=== PATIENT | male | born 1965 | race Caucasian/White ===

== ENCOUNTER 2020-12-10 17:48 | Inpatient (IN) | payer OTHER ==
[~2020-12-10] VITALS: Ht 180.3 cm; Wt 115.2 kg
[2020-12-10 18:13] VITALS: BP 141/89
[2020-12-10 19:27] LABS: ABSOLUTE BASOPHILS 0.1 thou/uL (0.0-0.2); ABSOLUTE EOSINOPHILS 0.1 thou/uL (0.0-0.7); ABSOLUTE LYMPHOCYTES 0.9 thou/uL (0.8-5.3); ABSOLUTE NEUTROPHILS 10.2 thou/uL (1.6-8.1); BASOPHILS 1.1 %; EOSINOPHILS 0.6 %; HEMATOCRIT 44.4 % (42.0-52.0); HEMOGLOBIN 14.9 gm/dL (14.0-18.0); LYMPHOCYTES 7.6 %; MCH 31.5 pg (26.0-34.0); MCHC 33.5 g/dL (28.0-37.0); MCV 93.9 fL (80.0-100.0); MONOCYTES 8.1 %; MPV 9.5 fl. (7.2-11.1); NUCLEATED RBCS 0 /100WBC; PLATELET COUNT* 154 thou/uL (150-400); POLYS 82.6 %; RBC 4.73 mil/uL (4.50-6.00); RDW-CV 12.5 % (10.5-14.5); WBC 12.4 thou/uL (4.0-11.0)
[2020-12-10 19:52] LABS: CALCIUM 8.6 mg/dL (8.5-10.1); CREATININE 0.9 mg/dL (0.6-1.3); POTASSIUM 3.9 mmol/L (3.5-5.1)
[2020-12-10 20:03] LABS: ALBUMIN 3.5 g/dL (3.4-5.0); TOTAL BILIRUBIN 0.5 mg/dL (<0.1-1.0)
[2020-12-11 02:25] VITALS: BP 120/80
[2020-12-11 02:45] VITALS: BP 137/79
--- NOTE | 2020-12-11 02:45 | NUR ---
RECEIVED REPORT FROM ER, TO ROOM PER BED. O2 ON AT 2L/NC, HOB ELEVATED. UNABLE TO TAKE DEEP BREATHS DUE TO PAIN. DISCUSSED WILL HAVE THE PAIN UNTIL CLOTS HAVE STARTED RESOLVING. TELEMETRY APPLIED SHOWING SR. SEE ADMISSION ASSESSEMENT AND HX. WILL CONT TO MONITOR AND ASSIST NEEDED.
[2020-12-11 08:00] VITALS: BP 123/87
[2020-12-11 11:55] VITALS: BP 127/88
--- NOTE | 2020-12-11 12:28 | EKG ---
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
[2020-12-11 16:00] VITALS: BP 146/83
[2020-12-11 17:14] LABS: AMP/METHAMP Negative (Negative); BARBITURATES Negative (Negative); BENZODIAZEPINES Negative (Negative); COCAINE Negative (Negative); METHADONE Negative (Negative); OPIATES POSITIVE (Negative); PCP Negative (Negative); THC Negative (Negative)
--- NOTE | 2020-12-11 18:26 | NUR ---
PT COMPLAINED OF PAIN THIS AM-TREATED WITH PRN TORADOL WITH PARTIAL RELIEF. DAUGHTER AT BEDSIDE THROUGHOUT SHIFT. ON 2L NC SAT MID 90'S. SHORTNESS OF BREATH WITH EXERTION NOTED. UP AD MARIELA IN ROOM. TRACING SR ON THE GOLF BALL COVER TREATER. AM ASSESSMENT CHARTED. MEDS PER JUN. CALL LIGHT WITHIN REACH. WILL CONTINUE PLAN OF CARE.
[2020-12-11 20:00] VITALS: BP 159/88
--- NOTE | 2020-12-11 20:00 | NUR ---
RECEIVED REPORT AND ASSUMED CARE OF PT, ASSESSMENT COMPLETED. PT ANXIOUS AND OBNOXIOUS AT TIMES. INDEPENDENT AMBULATION AROUND ROOM. DENIES SOA OR RT CHEST PAIN. TELEMETRY ON SHOWING SR. WILL CONT TO MONITOR AND ASSIST NEEDED.
[2020-12-12 00:40] VITALS: BP 150/82
[2020-12-12 04:00] VITALS: BP 155/70
--- NOTE | 2020-12-12 06:17 | NUR ---
SLEPT WELL TONIGHT. NO COMPLAINTS OF SOA OR RT CHEST PAIN. NO CHANGE IN ASSESSMENT. HS GOALS OF REST AND SAFETY ACHIEVED.
[2020-12-12 07:26] LABS: ABSOLUTE BASOPHILS 0.1 thou/uL (0.0-0.2); ABSOLUTE EOSINOPHILS 0.2 thou/uL (0.0-0.7); ABSOLUTE LYMPHOCYTES 1.7 thou/uL (0.8-5.3); ABSOLUTE MONOCYTES 1.1 thou/uL (0.0-1.2); ABSOLUTE NEUTROPHILS 5.8 thou/uL (1.6-8.1); BASOPHILS 0.9 %; EOSINOPHILS 2.8 %; HEMATOCRIT 41.8 % (42.0-52.0); HEMOGLOBIN 14.2 gm/dL (14.0-18.0); MCH 31.7 pg (26.0-34.0); MCV 93.3 fL (80.0-100.0); MONOCYTES 11.9 %; MPV 9.2 fl. (7.2-11.1); NUCLEATED RBCS 0 /100WBC; PLATELET COUNT* 171 thou/uL (150-400); POLYS 65.4 %; RBC 4.48 mil/uL (4.50-6.00); RDW-CV 12.3 % (10.5-14.5); WBC 8.8 thou/uL (4.0-11.0)
[2020-12-12 07:31] LABS: CALCIUM 8.9 mg/dL (8.5-10.1); CREATININE 0.9 mg/dL (0.6-1.3); POTASSIUM 4.3 mmol/L (3.5-5.1)
[2020-12-12 09:00] VITALS: BP 145/86
[2020-12-12 12:00] VITALS: BP 150/90
[2020-12-12] MEDS ORDERED: ELIQUIS5 MG PO (13:57)
[2020-12-12] MEDS ORDERED: LEVOFLOXACIN500 MG PO (14:00)
--- NOTE | 2020-12-12 14:30 | NUR ---
Pt is A&O. Resides at home with his . Active and independent. Pt just started a new job, so his health insurance lapsed, new insurance starts 02/05. No DME. No hx of HH or SNF. Med Assist to screen for [facility]. Pt had US of legs today, Dr to speak with IR regarding need for an ivc filter. Cardiology provided Eliquis samples and a copay card. No further needs.
[2020-12-12 14:31] VITALS: BP 150/90
[2020-12-12 16:49] VITALS: BP 150/90
== END 2020-12-12 15:15 | disposition home or self-care (01) | DRG 175 ==
LOC: M.ERS 17:48 → M.TBA-ER 22:45 → M.2W 12-11 02:28
PROVIDERS: Internal Medicine; Nurse Practitioner Family; ADMIT Internal Medicine; ATTEND Internal Medicine
DX: I26.09 Other pulmonary embolism with acute cor pulmonale (principal); J18.9 Pneumonia, unspecified organism; I82.432 Acute embolism and thrombosis of left popliteal vein; I82.412 Acute embolism and thrombosis of left femoral vein; E66.9 Obesity, unspecified; F17.210 Nicotine dependence, cigarettes, uncomplicated; Z20.822 Contact with and (suspected) exposure to COVID-19; Z68.35 Body mass index [BMI] 35.0-35.9, adult; Z88.0 Allergy status to penicillin; Z71.6 Tobacco abuse counseling